=== PATIENT | female | born 1960 | race Caucasian/White ===

== ENCOUNTER 2017-04-10 14:00 | Emergency (ER) | payer OTHER ==
[~2017-04-10] VITALS: Ht 162.6 cm; Wt 83.0 kg
--- NOTE | 2017-04-10 14:10 | NUR ---
ABD STICHES REDNESS X 2 DAYS RECENT CHOLECYSTECTOMY
[2017-04-10] MEDS ORDERED: LAMO100T PO (14:46)
[2017-04-10] MEDS ORDERED: IBUP-51 PO (14:46)
[2017-04-10] MEDS ORDERED: ALPR2TAB2 PO (14:46)
--- NOTE | 2017-04-10 14:46 | NUR ---
DR MCCORMICK AT BEDSIDE FOR EVAL
[2017-04-10 15:17] VITALS: BP 124/79
== END 2017-04-10 15:17 | disposition home or self-care (01) ==
LOC: ER 14:03
DX: Z48.02 Encounter for removal of sutures (principal); L03.311 Cellulitis of abdominal wall; G40.909 Epilepsy, unspecified, not intractable, without status epilepticus; F41.9 Anxiety disorder, unspecified; E78.00 Pure hypercholesterolemia, unspecified; Z90.49 Acquired absence of other specified parts of digestive tract
CPT/HCPCS: 99283; A4606; Z7610